=== PATIENT | female | born 1990 | race Hispanic/Latino ===

== ENCOUNTER 2020-06-06 07:13 | Emergency (ER) | payer MEDICAID ==
[2020-06-06 07:31] VITALS: BP 142/90
[2020-06-06] MEDS ORDERED: IBUPROFEN 800 MG TAB PO ONE (07:32)
--- NOTE | 2020-06-06 07:34 | Emergency Department Report ---
ED Laceration HPI - HPI Chief Complaint: Laceration/Recheck/Suture Stated Complaint: RT HAND RT INDEX FINGER Time Seen by Provider: 06/06/20 07:28 Location: Upper Extremity (right index) Severity: mild Tetanus Status: Up to Date Laceration Symptoms: Yes Pain, No Foreign Body Sensation, No Numbness, No Weakness Other History: This is a 29-year-old presents ED with laceration to the right index finger that occurred about 30 minutes prior to arrival. Patient states she was in the kitchen cutting some onions when she accidentally cut herself w ith a kitchen knife. She states bleeding is controlled. She states her tetanus vaccination was up-to-date. She denies any other symptoms ED Review of Systems ROS: Stated complaint: RT HAND RT INDEX FINGER Other details as noted in HPI Comment: All other systems reviewed and negative ED Past Medical Hx - Past Medical History Hx Hypertension: No Hx Diabetes: No Hx Deep Vein Thrombosis: No Hx Renal Disease: No Hx Sickle Cell Disease: No Hx Seizures: No Hx Asthma: Yes Hx HIV: No - Social History Smoking Status: Never Smoker Substance Use Type: None - Medications Home Medications: Home Medications Medication Instructions Recorded Confirmed Last Taken Type oxyCODONE /ACETAMINOPHEN [Percocet 1 tab PO Q4HR PRN #30 tab 12/04/19 Unknown Rx 5/325] Ibuprofen [Motrin 800 MG tab] 800 mg PO Q8HR PRN #30 tablet 06/06/20 Unknown Rx cephALEXin [Keflex] 500 mg PO Q12HR #10 cap 06/06/20 Unknown Rx Laceration Physical Exam - Exam General: Vital signs noted. No distress. Alert and acting appropriately. Laceration Location: Upper Extremity (right index) Full Body Front + Back: 1 - small 1cm shallow lac to index Laceration Exam: Yes Normal Distal CMS, No Foreign Body, No Exposed Tendon, Vessel, or Nerve, No Tendon Injury ED Course Vital Signs 06/06/20 07:30 Temperature 98.9 F Pulse Rate 74 Respiratory 17 Rate Blood Pressure 142/90 [Right] O2 Sat by Pulse 100 Oximetry - Laceration /Wound Repair Right Finger Wound Location: upper extremity Wound Length (cm): 1 Wound's Depth, Shape: superficial, linear Wound Explored: no foreign body removed Betadine Prep?: Yes Wound Repaired With: Steri-strips, Dermabond Number of Sutures: 0 Sterile Dressing Applied?: Yes ED Medical Decision Making - Medical Decision Making the 1cm laceration wound was prepped and draped in sterile fashion. The wound was irrigated with 200cc NS and explored. There were no foreign bodies. Anesthesia was not indicated The wound was reapproximated in 1 layer with Dermabond and Steri-Strips There was excellent reapproximation of the wound edges. The patient tolerated the procedure without complication Discussed antibiotic therapy to prevent infection. Instructions given patient understands directions and will follow-up Critical care attestation.: If time is entered above; I have spent that time in minutes in the direct care of this critically ill patient, excluding procedure time. ED Disposition Clinical Impression: Finger laceration Disposition: DC-01 TO HOME OR SELFCARE Is pt being admited?: No Does the pt Need Aspirin: No Condition: Stable Instructions: Laceration Care, Adult, [id number], Sutures, [place], or Adhesive Wound Closure, [id number] Additional Instructions: Make sure to follow up with the primary care physician as discussed. Take all your medications as you've been prescribed. If you have any worsening symptoms or develop new symptoms please return to ED immediately. Prescriptions: cephALEXin [Keflex] 500 mg PO Q12HR #10 cap Ibuprofen [Motrin 800 MG tab] 800 mg PO Q8HR PRN #30 tablet PRN Reason: Pain , Severe (7-10) Referrals: [facility] [Outside] - 3-5 Days [facility] [place] [Outside] - 3-5 Days Forms: Work/School Release Form(ED) Time of Disposition: 07:41
== END 2020-06-06 08:25 | disposition home or self-care (01) ==
LOC: ED 07:13
DX: S61.210A Laceration without foreign body of right index finger without damage to nail, initial encounter (principal); J45.909 Unspecified asthma, uncomplicated; Z79.1 Long term (current) use of non-steroidal anti-inflammatories (NSAID); Z79.899 Other long term (current) drug therapy; Z88.2 Allergy status to sulfonamides; W26.0XXA Contact with knife, initial encounter; Y93.89 Activity, other specified; Y92.89 Other specified places as the place of occurrence of the external cause; Y99.8 Other external cause status
CPT/HCPCS: 99282

== ENCOUNTER 2021-04-26 04:54 | Emergency (ER) | payer MEDICAID ==
[2021-04-26] MEDS ORDERED: SODIUM CHLORIDE 0.9% 1000 ML 1,000 ML IV ONE (05:04)
[2021-04-26] MEDS ORDERED: MORPHINE 4 MG/1 ML INJ IV ONE (05:04)
[2021-04-26] MEDS ORDERED: FAMOTIDINE 20 MG/2 ML INJ IV ONE (05:04)
[2021-04-26] MEDS ORDERED: ONDANSETRON 4 MG/2 ML INJ IV ONE ×2 (05:04→08:17)
[2021-04-26 06:11] LABS: Basophils % (Auto) 0.2 % (0.0-1.8); Eosinophils % (Auto) 0.3 % (0.0-4.3); Hematocrit 40.1 % (30.3-42.9); Hemoglobin 13.4 gm/dl (10.1-14.3); Lymphocytes # (Auto) 2.1 K/mm3 (1.2-5.4); Lymphocytes % (Auto) 20.6 % (13.4-35.0); Mean Corpuscular HGB Conc 33 % (30-34); Mean Corpuscular Volume 97 fl (79-97); Monocytes # (Auto) 0.7 K/mm3 (0.0-0.8); Monocytes % (Auto) 6.8 % (0.0-7.3); Platelet Count 296 K/mm3 (140-440); Red Blood Count 4.15 M/mm3 (3.65-5.03); Red Cell Distribution Width 12.8 % (13.2-15.2)
--- NOTE | 2021-04-26 06:16 | Event Note ---
ED Screening Note Date of service: 04/26/21 Time: 06:16 ED Screening Note: Patient is a 30-year-old white female with past medical history of gastric ulcers presents to the ED with complaint of acute onset persistent intractable nausea and vomiting and severe epigastric pain for the last 12 hours. Patient states that she has not been able to keep anything down in the last 6 hours because of worsening nausea and vomiting and worsening epigastric pain. Patient denies hematemesis, hematochezia, chest pain, shortness of breath, fever, chills, diarrhea, dysuria, urinary frequency and urgency, sore throat, headache, dizziness, syncope, seizures, lightheadedness or cough. This initial assessment/diagnostic orders/clinical plan/treatment(s) is/are subject to change based on patients health status, clinical progression and re- assessment by fellow clinical providers in the ED. Further treatment and workup at subsequent clinical providers discretion. Patient/guardian urged not to elope from the ED as their condition may be serious if not clinically assessed and managed. Initial orders include: CBC, CMP, lipase, UA, hCG serum
[2021-04-26 06:26] LABS: Alanine Aminotransferase 19 units/L (7-56); Albumin 4.5 g/dL (3.9-5); Blood Urea Nitrogen 11 mg/dL (7-17); Calcium 8.8 mg/dL (8.4-10.2); Hemolysis Index 26
[2021-04-26 06:27] LABS: BUN/Creatinine Ratio 18
--- NOTE | 2021-04-26 06:46 | Emergency Department Report ---
ED Abdominal Pain HPI - General Chief Complaint: Abdominal Pain Stated Complaint: ABDOMINAL PAIN Time Seen by Provider: 04/26/21 06:20 Source: patient Mode of arrival: Ambulatory Limitations: No Limitations - History of Present Illness Initial Comments: 30-year-old female presents to the ER today with complaints of epigastric pain. Patient states that the pain woke up out of her sleep around 10 AM yesterday morning. She states has been a constant stabbing pain. She reports associated nausea and vomiting. She states that she has vomited about 6 times since her symptoms started, emesis is not bilious. She denies any hematemesis or coffee- ground emesis. She denies any diarrhea or any other bowel changes. She denies any UTI symptoms or any abnormal vaginal symptoms. Last menstrual cycle was April 18, 2021. Abdominal surgery significant for C-sections. She states that she had an endoscopy 5 years ago and was diagnosed with peptic ulcer disease. She is not currently on any PPI or H2 blockers, but states that she stays away from alcohol, NSAIDs, acidic foods and spicy foods. MD Complaint: abdominal pain -: Last night Severity scale (0 -10): 10 - Related Data Previous Rx's Medication Instructions Recorded Last Taken Type oxyCODONE /ACETAMINOPHEN [Percocet 1 tab PO Q4HR PRN #30 tab 12/04/19 Unknown Rx 5/325] Ibuprofen [Motrin 800 MG tab] 800 mg PO Q8HR PRN #30 tablet 06/06/20 Unknown Rx cephALEXin [Keflex] 500 mg PO Q12HR #10 cap 06/06/20 Unknown Rx Esomeprazole Magnesium [NexIUM] 40 mg PO QDAY #60 cap 04/26/21 Unknown Rx Famotidine [Pepcid] 20 mg PO BID #30 tablet 04/26/21 Unknown Rx Hyoscyamine Subl [Levsin Sl 0.125 0.125 mg SL Q4HR PRN #15 tablet 04/26/21 Unknown Rx TAB] Ondansetron [Zofran Odt] 4 mg PO Q8HR #15 tab.rapdis 04/26/21 Unknown Rx Allergies Allergy/AdvReac Type Severity Reaction Status Date / Time Sulfa (Sulfonamide Allergy Hives Verified 12/03/19 22:39 Antibiotics) ED Review of Systems ROS: Stated complaint: ABDOMINAL PAIN Other details as noted in HPI Comment: All other systems reviewed and negative Constitutional: denies: chills, fever Eyes: denies: eye pain, eye discharge, vision change ENT: denies: ear pain, throat pain Respiratory: denies: cough, shortness of breath, SOB with exertion, SOB at rest, wheezing Cardiovascular: denies: chest pain, palpitations, syncope, paroxysmal nocturnal dyspnea Gastrointestinal: abdominal pain, nausea, vomiting. denies: diarrhea, constipation, hematemesis, melena, hematochezia Genitourinary: denies: urgency, dysuria, frequency, hematuria, discharge, abnormal menses, dyspareunia Musculoskeletal: denies: back pain, joint swelling, arthralgia Skin: denies: rash, lesions, pruritus Neurological: denies: headache, weakness, paresthesias, confusion, abnormal gait, vertigo Psychiatric: denies: anxiety, depression, auditory hallucinations, visual hallucinations, homicidal thoughts, suicidal thoughts Hematological/Lymphatic: denies: easy bleeding, easy bruising, swollen glands ED Past Medical Hx - Past Medical History Previous Medical History?: Yes Hx Hypertension: No Hx Diabetes: No Hx Deep Vein Thrombosis: No Hx Renal Disease: No Hx Sickle Cell Disease: No Hx Seizures: No Hx Asthma: Yes Hx HIV: No - Surgical History Past Surgical History?: No - Social History Smoking Status: Never Smoker Substance Use Type: None - Medications Home Medications: Home Medications Medication Instructions Recorded Confirmed Last Taken Type oxyCODONE /ACETAMINOPHEN [Percocet 1 tab PO Q4HR PRN #30 tab 12/04/19 Unknown Rx 5/325] Ibuprofen [Motrin 800 MG tab] 800 mg PO Q8HR PRN #30 tablet 06/06/20 Unknown Rx cephALEXin [Keflex] 500 mg PO Q12HR #10 cap 06/06/20 Unknown Rx Esomeprazole Magnesium [NexIUM] 40 mg PO QDAY #60 cap 04/26/21 Unknown Rx Famotidine [Pepcid] 20 mg PO BID #30 tablet 04/26/21 Unknown Rx Hyoscyamine Subl [Levsin Sl 0.125 0.125 mg SL Q4HR PRN #15 tablet 04/26/21 Unknown Rx TAB] Ondansetron [Zofran Odt] 4 mg PO Q8HR #15 tab.rapdis 04/26/21 Unknown Rx ED Physical Exam - General Limitations: No Limitations General appearance: alert, in no apparent distress - Head Head exam: Present: atraumatic, normocephalic, normal inspection - Eye Eye exam: Present: normal appearance, PERRL, EOMI Pupils: Present: normal accommodation - Respiratory Respiratory exam: Present: normal lung sounds bilaterally. Absent: respiratory distress, wheezes, rales, rhonchi - Cardiovascular Cardiovascular Exam: Present: regular rate, normal rhythm, normal heart sounds - GI/Abdominal GI/Abdominal exam: Present: soft, tenderness (Epigastric and right upper quadrant), guarding (Epigastric and right upper quadrant). Absent: distended, rebound, rigid - Neurological Exam Neurological exam: Present: alert, oriented X3, CN II-XII intact, normal gait - Psychiatric Psychiatric exam: Present: normal affect, normal mood - Skin Skin exam: Present: intact ED Course Vital Signs 04/26/21 04:58 Temperature 98.0 F Pulse Rate 95 H Respiratory 20 Rate Blood Pressure 150/91 O2 Sat by Pulse 97 Oximetry ED Medical Decision Making - Lab Data Result diagrams: 04/26/21 05:39 04/26/21 05:39 - Radiology Data Radiology results: report reviewed Patient: BEVERLEY ERICKSON MR#: [id number] : 1990 Acct:[id number] Age/Sex: 30 / F ADM Date: 04/26/21 Loc: ED Attending Dr: Ordering Physician: PAM HERNANDEZ Date of Service: 04/26/21 Procedure(s): CT abdomen pelvis w con Accession Number(s): [id number] cc: PAM HERNANDEZ CT ABDOMEN AND PELVIS WITH CONTRAST INDICATION: severe RUQ/epigastric pain. TECHNIQUE: Axial CT images were obtained through the abdomen and pelvis after 100 cc Omni [address] scans at this location are performed using CT dose reduction for ALARA by means of automated exposure control. COMPARISON: None available. FINDINGS: LOWER CHEST: No significant abnormality. LIVER: No significant abnormality. GALLBLADDER: No significant abnormality. BILE DUCTS: No significant abnormality. PANCREAS: No significant abnormality. SPLEEN: No significant abnormality. ADRENALS: No significant abnormality. RIGHT KIDNEY and URETER: No significant abnormality. LEFT KIDNEY and URETER: No significant abnormality. STOMACH and SMALL BOWEL: No significant abnormality. COLON: No significant abnormality. APPENDIX: No significant abnormality. PERITONEUM: No free fluid. No free air. No fluid collection. LYMPH NODES: Multiple shotty subcentimeter mesenteric nodes and mild as enteric stranding changes. AORTA and ARTERIES: No significant abnormality. IVC and VEINS: No significant abnormality. URINARY BLADDER: No significant abnormality. REPRODUCTIVE ORGANS: No significant abnormality. ADDITIONAL FINDINGS: None. SKELETAL SYSTEM: No significant abnormality. IMPRESSION: 1. Probable reactive mesenteric adenitis. 2. Otherwise negative abdominal and pelvic CT. Signer Name: Obdulio Presley MD Signed: 04/26/2021 8:01 AM Workstation Name: [id number] Transcribed By: TL Dictated By: Obdulio Presley MD Electronically Authenticated By: Obdulio Presley MD Signed Date/Time: 04/26/21800 DD/ 8 TD/TT: - Medical Decision Making All labs reviewed and unremarkable. CT reviewed and shows mesenteric adenitis but otherwise nothing acute. Patient currently resting comfortably. She is not toxic or ill-appearing. She is neurologically intact. She is hemodynamically stable. She was given IV meds and IV fluids when she was screened when she first arrived to the ER about 10 hours ago. She said that she still nauseous, but overall she states that her symptoms have improved since receiving the meds and IV fluids. Discussed all results with patient including the CT results. Symptoms could be related to a viral illness, or flareup of her peptic ulcer disease. At this time there is no indication for admission, emergent surgical or GI consult. Patient will be given medication to help treat her symptoms. She will be given referral information to PCP and GI specialty if her symptoms p ersist. Patient expressed understanding for instructions and agree with plan. Patient stable at time of discharge. Critical care attestation.: If time is entered above; I have spent that time in minutes in the direct care of this critically ill patient, excluding procedure time. ED Disposition Clinical Impression: Epigastric pain, Nausea and vomiting, History of peptic ulcer disease Disposition: HOME / SELF CARE / HOMELESS Is pt being admited?: No Does the pt Need Aspirin: No Condition: Stable Instructions: Peptic Ulcer, Abdominal Pain, Adult, Nausea and Vomiting, Adult, [id number], Abdominal Pain (ED) Additional Instructions: I recommend that you take the Nexium, as well as the Pepcid as prescribed for the next 3 to 4 weeks. Take the Zofran as prescribed to help with any nausea and vomiting. Take the Levsin as prescribed to help with any pain. Follow-up with your primary care doctor and or GI next week. Return to the ER if your symptoms worsens or changes in any way Prescriptions: Hyoscyamine Subl [Levsin Sl 0.125 TAB] 0.125 mg SL Q4HR PRN #15 tablet PRN Reason: abdominal Spasms Esomeprazole Magnesium [NexIUM] 40 mg PO QDAY #60 cap Famotidine [Pepcid] 20 mg PO BID #30 tablet Ondansetron [Zofran Odt] 4 mg PO Q8HR #15 tab.jose Referrals: JAQUELIN LOPEZ MD [Staff Physician] - 3-5 Days [facility] [Provider Group] - 3-5 Days Forms: Work/School Release Form(ED) Time of Disposition: 08:17
[2021-04-26 07:42] LABS: Bilirubin,Urine NEG (Negative); Blood,Urine NEG (Negative); Color,Urine Amber (Yellow); Mucus,Urine FEW /HPF
--- NOTE | 2021-04-26 08:05 | Cat Scan Report ---
CT ABDOMEN AND PELVIS WITH CONTRAST INDICATION: severe RUQ/epigastric pain. TECHNIQUE: Axial CT images were obtained through the abdomen and pelvis after 100 cc Omni [address] scans at this location are performed using CT dose reduction for ALARA by means of automated expos ure control. COMPARISON: None available. FINDINGS: LOWER CHEST: No significant abnormality. LIVER: No significant abnormality. GALLBLADDER: No significant abnormality. BILE DUCTS: No significant abnormality. PANCREAS: No significant abnormality. SPLEEN: No significant abnormality. ADRENALS: No significant abnormality. RIGHT KIDNEY and URETER: No significant abnormality. LEFT KIDNEY and URETER: No significant abnormality. STOMACH and SMALL BOWEL: No significant abnormality. COLON: No significant abnormality. APPENDIX: No significant abnormality. PERITONEUM: No free fluid. No free air. No fluid collection. LYMPH NODES: Multiple shotty subcentimeter mesenteric nodes and mild as enteric stranding changes. AORTA and ARTERIES: No significant abnormality. IVC and VEINS: No significant abnormality. URINARY BLADDER: No significant abnormality. REPRODUCTIVE ORGANS: No significant abnormality. ADDITIONAL FINDINGS: None. SKELETAL SYSTEM: No significant abnormality. IMPRESSION: 1. Probable reactive mesenteric adenitis. 2. Otherwise negative abdominal and pelvic CT. Signer Name: Obduloi Presley MD Signed: 04/26/2021 8:01 AM Workstation Name: [id number]
[2021-04-26] MEDS ORDERED: HYOSCYAMINE SUBL 0.125 MG TAB SL ONE (08:17)
[2021-04-26 10:26] VITALS: BP 115/64
== END 2021-04-26 10:25 | disposition home or self-care (01) ==
LOC: ED 04:54
DX: R10.13 Epigastric pain (principal); R11.2 Nausea with vomiting, unspecified; J45.909 Unspecified asthma, uncomplicated; Z88.2 Allergy status to sulfonamides; Z79.899 Other long term (current) drug therapy
CPT/HCPCS: 36415; 74177; 80053; 81001; 83690; 84703; 85025; 96361; 96374; 96375; 96376; 99284; J2270; J2405; J3490; J7030; Q9967; Q0162

== ENCOUNTER 2021-06-20 04:30 | Emergency (ER) | payer MEDICAID ==
[2021-06-20 04:48] VITALS: BP 148/80
[2021-06-20] MEDS ORDERED: BUTALB/ACETAMINOPHEN/CAFFEINE TAB PO ONE (04:50)
[2021-06-20] MEDS ORDERED: KETOROLAC 60 MG/2 ML INJ IM ONE (04:51)
[2021-06-20] MEDS ORDERED: ONDANSETRON 4 MG ODT TAB PO ONE (04:51)
--- NOTE | 2021-06-20 05:06 | Emergency Department Report ---
ED Headache HPI - General Chief Complaint: Headache Stated Complaint: MIGRAINE/VOMITING Source: patient Exam Limitations: no limitations - History of Present Illness Initial Comments: Patient is a 30-year-old female with a history of GERD, asthma and chronic migraine headaches who presents to the ED with complaint of acute onset persistent right temporal headache for over 12 hours with nausea and vomiting. Patient states that she has taken Imitrex tablets 3 times with no relief. Patient states that in the last 6 hours she has not been able to keep anything down because of persistent nausea and vomiting. Patient states that her symptoms are typical of her chronic migraine headaches with flareups. Patient denies fever, chills, dizziness, syncope, change in vision, neck pain, nasal and sinus congestion, sore throat, seizures, cough, abdominal pain, traumatic injury, heavy lifting, chest pain or shortness of breath. Timing/Duration: 24 hours, constant, waxing and waning Quality: severe, constant, sharp, throbbing Head Injury Location: temporal (Right temporal) Recent Head Trauma: no recent headache/trauma Associated Symptoms: denies symptoms, nausea/vomiting. denies: confusion, fatigue, facial pain, fever/chills, flushing, loss of consciousness, nasal congestion, nasal drainage, numbness in legs/feet, seizures, sinus infection, stiff neck, vision changes, weakness Allergies/Adverse Reactions: Allergies Sulfa (Sulfonamide Antibiotics) Allergy (Verified 12/03/19 22:39) Hives ibuprofen [From Motrin] Adverse Reaction (Verified 06/20/21 04:41) Unknown pt has hx ulcers Home Medications: Ambulatory Orders oxyCODONE /ACETAMINOPHEN [Percocet 5/325] 1 tab PO Q4HR PRN #30 tab 12/04/19 Ibuprofen [Motrin 800 MG tab] 800 mg PO Q8HR PRN #30 tablet 06/06/20 cephALEXin [Keflex] 500 mg PO Q12HR #10 cap 06/06/20 Esomeprazole Magnesium [NexIUM] 40 mg PO QDAY #60 cap 04/26/21 Famotidine [Pepcid] 20 mg PO BID #30 tablet 04/26/21 Hyoscyamine Subl [Levsin Sl 0.125 TAB] 0.125 mg SL Q4HR PRN #15 tablet 04/26/21 Ondansetron [Zofran Odt] 4 mg PO Q8HR #15 tab.rapdis 04/26/21 Butalb/Acetamin/Caff 50-325-40 [Fioricet 50-325-40] 1 - 2 tab PO Q6HR PRN #15 tab 06/20/21 Famotidine [Pepcid] 20 mg PO BID #30 tablet 06/20/21 Promethazine [Phenergan] 25 mg PO Q6HR PRN #24 tab 06/20/21 ED Review of Systems ROS: Stated complaint: MIGRAINE/VOMITING Other details as noted in HPI Constitutional: denies: chills, fever Eyes: denies: eye pain, eye discharge, vision change ENT: denies: ear pain, throat pain Respiratory: denies: cough, shortness of breath, wheezing Cardiovascular: denies: chest pain, palpitations Endocrine: no symptoms reported Gastrointestinal: nausea, vomiting. denies: abdominal pain, diarrhea Genitourinary: denies: urgency, dysuria, discharge Musculoskeletal: denies: back pain, joint swelling, arthralgia Skin: denies: rash, lesions Neurological: headache. denies: weakness, paresthesias Psychiatric: denies: anxiety, depression Hematological/Lymphatic: denies: easy bleeding, easy bruising ED Past Medical Hx - Past Medical History Previous Medical History?: Yes Hx Hypertension: No Hx Diabetes: No Hx Deep Vein Thrombosis: No Hx Renal Disease: No Hx Sickle Cell Disease: No Hx Headaches / Migraines: Yes Hx Seizures: No Hx Asthma: Yes Hx HIV: No - Surgical History Past Surgical History?: Yes Additional Surgical History: c-sec, dental - Social History Smoking Status: Never Smoker Substance Use Type: None - Medications Home Medications: Home Medications Medication Instructions Recorded Confirmed Last Taken Type oxyCODONE /ACETAMINOPHEN [Percocet 1 tab PO Q4HR PRN #30 tab 12/04/19 Unknown Rx 5/325] Ibuprofen [Motrin 800 MG tab] 800 mg PO Q8HR PRN #30 tablet 06/06/20 Unknown Rx cephALEXin [Keflex] 500 mg PO Q12HR #10 cap 06/06/20 Unknown Rx Esomeprazole Magnesium [NexIUM] 40 mg PO QDAY #60 cap 04/26/21 Unknown Rx Famotidine [Pepcid] 20 mg PO BID #30 tablet 04/26/21 Unknown Rx Hyoscyamine Subl [Levsin Sl 0.125 0.125 mg SL Q4HR PRN #15 tablet 04/26/21 Unknown Rx TAB] Ondansetron [Zofran Odt] 4 mg PO Q8HR #15 tab.rapdis 04/26/21 Unknown Rx Butalb/Acetamin/Caff 50-325-40 1 - 2 tab PO Q6HR PRN #15 tab 06/20/21 Unknown Rx [Fioricet 50-325-40] Famotidine [Pepcid] 20 mg PO BID #30 tablet 06/20/21 Unknown Rx Promethazine [Phenergan] 25 mg PO Q6HR PRN #24 tab 06/20/21 Unknown Rx ED Physical Exam - General Limitations: No Limitations General appearance: alert, in no apparent distress, anxious - Head Head exam: Present: atraumatic, normocephalic, normal inspection - Eye Eye exam: Present: normal appearance, PERRL, EOMI Pupils: Present: normal accommodation - ENT ENT exam: Present: normal exam, normal orophraynx, mucous membranes moist, TM's normal bilaterally, normal external ear exam - Neck Neck exam: Present: normal inspection, full ROM. Absent: tenderness - Respiratory Respiratory exam: Present: normal lung sounds bilaterally. Absent: respiratory distress, wheezes, rales, rhonchi, stridor, chest wall tenderness, accessory muscle use, decreased breath sounds, prolonged expiratory - Cardiovascular Cardiovascular Exam: Present: regular rate, normal rhythm, normal heart sounds. Absent: systolic murmur, diastolic murmur, rubs, gallop - GI/Abdominal GI/Abdominal exam: Present: soft, normal bowel sounds. Absent: tenderness, guarding, rebound, hyperactive bowel sounds, hypoactive bowel sounds, organomegaly - Extremities Exam Extremities exam: Present: normal inspection, full ROM, normal capillary refill - Back Exam Back exam: Present: normal inspection, full ROM. Absent: tenderness, CVA tenderness (R), CVA tenderness (L), muscle spasm, paraspinal tenderness, vertebral tenderness - Neurological Exam Neurological exam: Present: alert, oriented X3, CN II-XII intact, normal gait, reflexes normal - Psychiatric Psychiatric exam: Present: normal affect, normal mood - Skin Skin exam: Present: warm, dry, intact, normal color. Absent: rash ED Course Vital Signs 06/20/21 04:40 Temperature 98.6 F Pulse Rate 63 Respiratory 17 Rate Blood Pressure 148/80 [Right] O2 Sat by Pulse 100 Oximetry ED Medical Decision Making - Medical Decision Making This is a 30-year-old female with a history of GERD, asthma and chronic migraine headaches who presents to the ED with complaint of acute onset persistent right temporal headache for over 12 hours with nausea and vomiting. Patient states that she has taken Imitrex tablets 3 times with no relief. Patient states that in the last 6 hours she has not been able to keep anything down because of persistent nausea and vomiting. Patient states that her symptoms are typical of her chronic migraine headaches with flareups. In the ED, patient is alert and oriented x3 and is not in any distress. Patient was treated in the ED for pain and was given antiemetics. Patient was observed in [facility] ED for 1 hour and was monitored. On reevaluation, patient's headache resolved medication. Patient has not had any nausea or vomiting while in the ED and passed oral fluid challenge. Patient was discharged home on medications and advised to follow-up with her primary care physician in 5 to 7 days for reevaluation or return to the ED immediately if symptoms get worse. - Differential Diagnosis Migraine headache; viral syndrome; tension headache; cluster headache; Critical care attestation.: If time is entered above; I have spent that time in minutes in the direct care of this critically ill patient, excluding procedure time. ED Disposition Clinical Impression: Nausea and vomiting in adult patient Migraine headache without aura Qualifiers: Status migrainosus presence: with status migrainosus Intractability: not int ractable Qualified Code(s): G43.001 - Migraine without aura, not intractable, with status migrainosus Disposition: 01 HOME / SELF CARE / HOMELESS Is pt being admited?: No Does the pt Need Aspirin: No Condition: Stable Instructions: Recurrent Migraine Headache, [id number], Nausea and Vomiting, Adult, [id number] Additional Instructions: Take medication with food, drink plenty of fluids and follow-up with your primary care physician in 7 to 10 days for reevaluation. Return to the ED immediately if symptoms get worse. Prescriptions: Butalb/Acetamin/Caff 50-325-40 [Fioricet 50-325-40] 1 - 2 tab PO Q6HR PRN #15 tab PRN Reason: Headache Famotidine [Pepcid] 20 mg PO BID #30 tablet Promethazine [Phenergan] 25 mg PO Q6HR PRN #24 tab PRN Reason: Nausea Referrals: [facility] [Provider Group] - 3-5 Days Forms: Work/School Release Form(ED) Time of Disposition: 05:08 Print Language: [place]
== END 2021-06-20 06:18 | disposition home or self-care (01) ==
LOC: ED 04:30
DX: G43.009 Migraine without aura, not intractable, without status migrainosus (principal); R11.2 Nausea with vomiting, unspecified; J45.909 Unspecified asthma, uncomplicated; Z98.890 Other specified postprocedural states; Z88.2 Allergy status to sulfonamides; Z88.6 Allergy status to analgesic agent; Z79.899 Other long term (current) drug therapy
CPT/HCPCS: 96372; 99282; J1885; J3490; Q0162

== ENCOUNTER 2021-08-01 12:38 | Emergency (ER) | payer MEDICAID | END 2021-08-02 | disposition left against medical advice (07) | LOC: ED 12:38 | DX: J02.9 Acute pharyngitis, unspecified (principal); Z53.21 Procedure and treatment not carried out due to patient leaving prior to being seen by health care provider ==